=== PATIENT | female | born 1935 | race Caucasian/White ===

== ENCOUNTER 2017-02-14 12:16 | Inpatient (IN) | payer MEDICARE ==
[~2017-02-14] VITALS: Ht 157.5 cm; Wt 62.6 kg
[2017-02-14 12:59] LABS: BASOPHILS 0.5 % (0-2); EOSINOPHILS 1.2 % (0-7); HEMATOCRIT 35.4 % (36.0-48.0); HEMOGLOBIN 11.7 g/dL (12-16); IMMATURE GRANULOCYTES 0.2 % (0-5); LYMPHOCYTES 24.3 % (15-50); MCH 31.9 pg (26.0-34.0); MCHC 33.1 g/dL (31.0-37.0); MCV 96.5 fL (80.0-100.0); MEAN PLATELET VOLUME 9.5 fL (7.4-10.4); MONOCYTES 7.6 % (2-11); NEUTROPHILS 66.2 % (40-80); PLATELET COUNT 235 10x3/uL (130-400); RBC 3.67 10x6/uL (4.00-5.40); RDW 12.4 % (11.5-14.5)
[2017-02-14 13:12] LABS: ALBUMIN 3.6 g/dL (3.4-5.0); ALKALINE PHOSPHATASE 94 U/L (46-116); ALT (SGPT) 16 U/L (10-68); CALC OSMOLALITY 275 mosm/kg (275-300); CALCIUM 8.9 mg/dL (8.5-10.1); CARBON DIOXIDE 29.9 mmol/L (21.0-32.0); CHLORIDE - SERUM 102 mmol/L (98-107); CREATININE - SERUM 1.1 mg/dL (0.6-1.3); GLUCOSE 110 mg/dL (74-106); POTASSIUM - SERUM 3.1 mmol/L (3.5-5.1); PROTEIN - SERUM 7.4 g/dL (6.4-8.2); SODIUM 137 mmol/L (136-145); UREA NITROGEN 15 mg/dL (7-18); eGFR NON AFRICAN AMERICAN 50 mL/min (90-120)
[2017-02-14 13:24] LABS: CKMB 1.9 U/L (0.0-3.6); CREATINE KINASE 160 UL (21-215)
[2017-02-14 13:31] LABS: TROPONIN-I < 0.017 ng/mL (0.000-0.060)
[2017-02-14] MEDS ORDERED: CARAFATE1 G PO (14:59)
[2017-02-14] MEDS ORDERED: CELEBREX200 MG PO (14:59)
[2017-02-14] MEDS ORDERED: NEURONTIN 300300 MG PO (14:59)
[2017-02-14] MEDS ORDERED: BAYER CHEWABLE81 MG PO (15:00)
[2017-02-14] MEDS ORDERED: TIAZAC/CARDIZE240 M1 PO (15:00)
[2017-02-14] MEDS ORDERED: CELEXA20 MG PO (15:00)
[2017-02-14] MEDS ORDERED: DURAGESIC1 PATCH .7 TRANSDERM (15:03)
[2017-02-14] MEDS ORDERED: NORCO 7.5/325 T1 TA1 PO (15:04)
[2017-02-14] MEDS ORDERED: ATIVAN2 MG PO (15:05)
[2017-02-14] MEDS ORDERED: PROTONIX40 MG PO (15:05)
[2017-02-14] MEDS ORDERED: VESICARE10 MG PO (15:05)
[2017-02-14] MEDS ORDERED: K-TAB10 MEQ PO (15:06)
[2017-02-14] MEDS ORDERED: NORMODYNE / TR100 MG PO (15:07)
[2017-02-14] MEDS ORDERED: MYSOLINE250 MG PO (15:07)
[2017-02-14] MEDS ORDERED: ANTIVERT12.5 MG PO (15:08)
[2017-02-14] MEDS ORDERED: CHOLESTYRAMIN4 G/PK1 PO (15:09)
[2017-02-14] MEDS ORDERED: PHENERGAN25 M1 PO (15:10)
[2017-02-14] MEDS ORDERED: NITROSTAT0.4 MG SL (15:10)
[2017-02-14] MEDS ORDERED: MELATONIN 3 MG1 TAB PO (15:12)
[2017-02-14 15:24] LABS: CHOL - HDL RATIO 2.8 ratio (2.3-4.1); LDL-HDL RATIO 1.3 ratio (1.5-3.5)
[2017-02-14 15:43] VITALS: BP 152/74; BMI 25.3
--- NOTE | 2017-02-14 16:31 | NUR ---
PT WAS ADMITTED FROM THE ED FROM [facility]. PT IS VERY TEARFUL AND ANXIOUS. ORIENTED TO PERSON, PLACE, AND TIME. PT MOOD IS LABILE WITH PERIODS OF DEPRESSION MIXED WITH PERIODS OF AGITATION. PT IS VERY ARGUMENTATIVE AND DIFFICULT TO REDIRECT. FALL PRECAUTIONS INITIATED. WILL CONTINUE TO MONITOR AND INITIATE PLAN OF CARE.
--- NOTE | 2017-02-14 16:35 | NUR ---
ATTEMPTED TO CALL BOTH NUMBERS FOR PT'S DAUGHTER BUT NO ANSWER. WAS UNABLE TO LEAVE MESSAGE.
[2017-02-14 16:36] VITALS: BP 152/74
--- NOTE | 2017-02-14 17:35 | NUR ---
DAUGHTER CALLED AND I UPDATED HER ON PT BEING ADMITTED. GAVE VERBAL CONSENT FOR ADMIT AND CARE. REVIEWED MEDICATIONS AND TX PLAN. VERBALIZED UNDERSTANDING.
[2017-02-14 20:58] VITALS: BP 154/76
--- NOTE | 2017-02-14 21:19 | NUR ---
B) Recieved patient in the day room, alert and oriented to self and being in the hospital, mad at Benigno Estrella for putting her here, difficult to redirect, restless, somatic complaints, I) No Medications this shift, monitored for falls and safety, R) somatic compliants, needy, attention seeking, P) Continue plan of care, continue to monitor.
--- NOTE | 2017-02-15 07:38 | NUR ---
ATTEMPTED TO GET IN AND OUT FOR URINE, UNABLE, BUT PATIENT WAS ABLE TO URINATE ON HER OWN, OBTAINED URINE TO SEND RO LAB.
[2017-02-15 08:41] LABS: APPEARANCE CLEAR (CLEAR); BACTERIA MODERATE /hpf (NONE SEEN); BILIRUBIN NEGATIVE (NEGATIVE); COLOR YELLOW (YELLOW); EPITHELIAL CELLS 0-5 /hpf (0-5); GLUCOSE NEGATIVE (NEGATIVE); HYALINE CAST 0-5 /lpf (NONE SEEN); KETONE NEGATIVE (NEGATIVE); LEUKOCYTE ESTERASE TRACE (NEGATIVE); MUCUS <1+ /lpf (NONE SEEN); NITRITE NEGATIVE (NEGATIVE); PROTEIN NEGATIVE (NEGATIVE); RED CELLS - URINE 0-5 /hpf (0-5); SPECIFIC GRAVITY 1.015 (1.005-1.020); UROBILINOGEN NORMAL (NORMAL); WHITE CELLS - URINE OCC /hpf (0-5)
--- NOTE | 2017-02-15 09:41 | NUR ---
QUESTERINE PO GIVEN FOR LOOSE BM, WILL MONITOR.
[2017-02-15 09:47] VITALS: BP 152/85
--- NOTE | 2017-02-15 10:38 | NUR ---
B) PATIENT C/O HAVING DIARRHEA, SHE SAYS SHE HAS HAD 10-15 BOWEL MOVEMENTS LAST NIGHT, BUT NONE WERE REPORTED AND THEN WILBERT GOLDMAN TOOK HER TO THE TOILET AND SHE SAID SHE HAD A BM NOW, BUT WILBERT SAID SHE DID NOT NOTE IT. PATIENT C/O STOMACH ISSUES AND SHE C/O HER EYES BOTHERING, SHE IS DEMANDING AND ANXIOUS AND MAKES MULTPLE REQUESTS. PATIENT CAN WALK, BUT SHE IS UNSTEADY. SHE JUST AMBULATED WITH P.T. AND WALKED A SHORT DISTANCE USING A WALKER. I) PROVIDE PRESCRIBED MEDS, REDIRECT NEEDED. R) PATIENT IS COMPLIANT WITH MEDS AND REQUESTS MORE. P) CONTINUE PLAN OF CARE.
[2017-02-15 11:06] VITALS: Ht 157.5 cm; Wt 62.6 kg
--- NOTE | 2017-02-15 13:13 | NUR ---
PATIENTS DAUGHTER CRISITN CALLED TO CHECK ON HER. GORGE YOON MHT SPOKE TO HER DAUGHTER AND GAVE HER THE REPORT THAT PATIENT IS FINE, BUT ANXIOUS. PATIENT CONTINUES TO C/O STOMACH HURTING AND NAUSEA AND HAVING DIARRHEA. SHE FLUSHES TOILET BEFORE IT CAN BE SEEN, BUT THERE IS NO SMELL LIKE A BM HAS BEEN HAD.
--- NOTE | 2017-02-15 14:54 | NUR ---
PATIENT CONTINUES TO C/O HER STOMACH JUST HURTING SO BADLY, EXPLAINED TO PATIENT THAT SHE IS NOT ABLE TO HAVE HER ANTIDIARRHEAL MED UNTIL TONIGHT, BUT AT 1630 SHE CAN HAVE ANOTHER SUCROLOSE. PATIENT SAID "I WISH I WOULD HAVE ASKED THAT FOR MEDICINE. EXPLAINED TO HER THAT THE DRAlie WILL PRESCRIBE HER WHAT HE FEELS LIKE SHE NEEDS. SHE SAID "OH, OK". PATIENT SITTING IN SANJAY CHAIR, NO FACIAL GRIMACES NOTED. SHE IS WHINING AND DEMANDING AND HELPLESS, HOPELESS.
--- NOTE | 2017-02-15 16:43 | NUR ---
PATIENT IS ASKING ABOUT PAIN MEDICATION. I JUST GAVE HER A CARAFATE AND PATIENT SAID "IS THAT ALL, I THOUGHT YOU WERE GOING TO GIVE ME MEDICINE" I SAID "YOU WILL GET MEDICINE TONIGHT" SHE SAID "NO, DON'T I HAVE A PAIN PILL?" EXPLAINED TO HER THAT "NO, NOT CURRENTLY". PATIENT REMIANED CALM.
--- NOTE | 2017-02-15 17:47 | NUR ---
PATIENT IS SHAKING AND SHE SAYS "I'M SHAKING LIKE A LEAF" EXPLAINED TO HER THAT SHE IS PROBABLY A LITTLE ANXIOUS AND IT IS PARTIALLY HER PARKINSON'S ALSO. PATIENT SAID "I'M RUNNING A TEMPERATURE, MY STOMACH IS KILLING ME" PATIENT WENT TO THE BATHROOM AND SHE SAID SHE THREW UP, SHE DID NOT LET STAFF SEE AND THERE WAS NO OTHER SIGN SUCH SMELL. EXPLAINED TO PATIENT THAT SHE WILL NEED TO LET STAFF SEE BEFORE SHE FLUSHES FROM NOW ON. SHE SAID "OH, I'M SORRY". PATIENT IS EATING HER MEAL.
[2017-02-15 19:54] VITALS: BP 147/73
--- NOTE | 2017-02-16 02:24 | NUR ---
B) Recieved in the day room watching TV, alert and oriented to self and hospital, anxious at times, I) Administered perscribed medications, monitored for falls and safety, R) Medication compliant, resting now quietly in bed eyes closed, P) Continue plan of care.
[2017-02-16 10:15] VITALS: BP 153/81
--- NOTE | 2017-02-16 12:59 | NUR ---
PATIENT'S DAUGHTER CALLED AND SHE ASKED HOW SHE IS DOING, ASKED IF SHE WOULD BE DISCHARGED TODAY, ASKED ABOUT UPDATES. EXPLAINED TO HER THAT NORMALLY OUR PATIENTS STAY IS 7-14 DAYS, AND DR. KENNEY WHO IS FOLLOWING WILL BE OFF THIS WEEKEND, BUT DR. RICO WILL FOLLOW, EXPLAINED THAT DR. KENNEY TOOK HER OFF SEVERAL OF HER MEDS AND TOLD HER WHICH ONES, EXPLAINED TO HER THAT SHE HAD A TEST WITH DR. PHIPPS AND SCORED WITH MODERATE IMPAIRMENT. PATIENT'S DAGHTER SAID "I WONDER WHY THE THINKS SHE DOESN'T NEED ANY PAIN MEDICATION" STATED "IT ISN'T THAT HE DOES NOT THINK SHE NEEDS PAIN MEDICINE, BUT PERHAPS MORE OF A FORGETFUL NATURE TO REQUEST IT" EXPLAINED TO HER THAT 30 MINUTES AFTER THIS STATEMENT I TOOK HER STOMACH MEDICINE TO HER AND THERE WAS NO MENTION OF PAIN AND SHE HAD BEEN INTERACTING AND ENJOYING GROUP THERAPY WITH STAFF AND PEERS. PATIENT'S DAUGHTER ASKED WHEN VISITING HOURS ARE AND DID LET HER KNOW FROM 3:30 PM TO 5:00 PM tUES, THURS, SAT AND SUN.
--- NOTE | 2017-02-16 13:29 | NUR ---
B) PATIENT IS AWAKE AND ALERT, SHE IS ORIENTED X3, BUT HAS POOR SHORT TERM MEMORY RECALL. SHE IS TRYING TO BE HELPFUL, BUT SHE NEEDS PROMPTS TO REMEBER THAT SHE IS A PATIENT AND NEEDS TO GET WELL FOR HERSELF AND NOT WORRY ABOUT OTHERS OR WHAT OTHERS ARE DOING. PATIENT IS COOPERATIVE, BUT FORGETS IN A FEW MINUTES. PATIENT CAN AMBULATE, BUT NEEDS STAND BY ASSIST. REMIND HER TO BE INDEPENDENT SHE CAN FOR LONG SHE CAN, BUT WE WILL BE HERE. I) PROVIDE PRESCRIBED MEDS, REDIRECT NEEDED TO APPROPRIATE MILIEU. R) PATIENT IS COMPLIANT WITH MEDS, SHE IS INTERACTING WITH GROUPS. SHE IS MORE RELAXED TODAY. P) CONTINUE PLAN OF CARE.
--- NOTE | 2017-02-16 16:44 | NUR ---
PATIENT IS ANXIOUS, SHE HAS SAID "OH WHAT A DAY" SHE SAYS SHE HAS NOT SLEPT, SHE WOKE UP AT 2 AM AND DID NOT GO TO SLEEP. EXPLAINED TO HER THAT SHE SHOULD SLEEP BETTER TONIGHT THEN. SHE SAID "BOY, I HOPE SO" SHE IS NERVOUS BECAUSE ONE OF THE PATIENTS IS TALKING TO HERSELF. ATIVAN 0.5 MG PO GIVEN. WILL MONITOR.
--- NOTE | 2017-02-16 17:30 | NUR ---
PATIENT SAID SHE THREW UP HER STOMACH PILL AND ASPIRIN. DID NOT SEE THE MED OR ANY VOMIT IN THE TRASH. GORGE SAID SHE THREW THE PAPER TRASH BAG IN THE BIG TRASH BAG SO IT IS GONE. PATIENT IS SAYING "I DON'T FEEL WELL" ALTHOUGH PATIENT IS CALM THERE IS NO MENTION OF PAIN OR ANXIETY. SHE THOUGHT SHE THREW UP THE STOMACH MED WITH THE ASA, BUT I SAID "NO, MA'AM IT WAS AN ATIVAN WITH YOUR STOMACH MED" SHE SAID "I'M NOT USE TO TAKING THAT WITH MY STOMACH MED" SHE IS EATING HER COBBLER, BUT NOT HER FOOD.
[2017-02-16 19:30] VITALS: BP 126/89
[2017-02-16 21:44] VITALS: BP 126/89
--- NOTE | 2017-02-17 02:00 | NUR ---
PATIENT IN DAYROOM IN RECLINER WITH LEGS PROPPED UP ON CHAIR. SHE IS NOT AGITATED OR CRYING. PATIENT IS COMPLIANT WITH HER MEDICATION. SHE IS ALERT AND OREINTED TO SELF, TIME AND PLACE. CONTINUE TO MONITOR.
[2017-02-17 11:23] VITALS: BP 132/93
--- NOTE | 2017-02-17 18:36 | NUR ---
MARCO OHARA 3.DOES NOT UNDERSTAND OR IS UNWILLING TO ADMIT TO WHY SHE IS HERE.STATES SHE IS HERE BECAUSE HER BP WAS ELEVATED FOR SEVERAL DAYS.STATE"I'M NOT CRAZY LIKE THOSE PEOPLE"EXPLAINED TOHER PEERS ARE NOT CRAZY,THAT THEY HAVE PROBLEMS WITH MEMORY.TAKES AM MEDS AND THEN BECOMES ARGUMENTIVE ABOUT HOW OFTEN SHE TAKES MEDICATIONS.WILL CONTINUE WITH PLAN OF CARE,MONITOR FOR CHANGES AND SAFETY.
[2017-02-17 19:30] VITALS: BP 130/86
--- NOTE | 2017-02-17 23:01 | NUR ---
Patient in dayroom watching t.v. She is engaging with staff, talking about her family. She is talking about grandchildren and her life, sacrafices she has made to put her grandchildren and children through school. Patient appears lonely and wants to engage with staff. She talks frequently about her daughters who are nurses. Patient is alert and oriented to person, place and time but not situation. Patient is encouraged to express her feelings and needs. She is pleasant, non-agitated or crying. Compliant with medication. continue to monitor, continue plan of care.
[2017-02-18 09:27] VITALS: BP 139/86
--- NOTE | 2017-02-18 18:53 | PN ---
PATIENT:MAYA CARTAGENA MEDICAL RECORD: [id number] LOCATION:[id number] ADMISSION DATE: 02/14/17 PROGRESS NOTE DATE OF SERVICE: 02/16/2017 SUBJECTIVE: The patient complains of insomnia. OBJECTIVE: The patient has had multiple somatic complaints in the absence of any psychosis. Staff report that she is very manipulative and also exhibits emotional lability. She does have episodic confusion, but at times is more clearly oriented. On exam, mood is somewhat irritable. Affect is shallow and histrionic. Speech is fairly coherent. Content of thought is predominated by somatic complaints. Sensorium shows no change. ASSESSMENT: No change in diagnosis. PLAN: 1. Continue current medications. 2. Continue supportive therapy. TRANSINT:[id number] Voice Confirmation ID: [id number] DOCUMENT ID: [id number] CATRINA RICO III, MD at 1853 CC: [id number] DICTATION DATE: 02/16/17 1049 TEAROOM HOST/HOSTESS: 02/16/172036 ADM IN [place] [id number] [place] [id number]
--- NOTE | 2017-02-18 18:53 | PN ---
PATIENT:MAYA CARTAGENA MEDICAL RECORD: [id number] LOCATION:[id number] ADMISSION DATE: 02/14/17 PROGRESS NOTE DATE OF SERVICE: 02/18/2017 SUBJECTIVE: No new complaint. OBJECTIVE: The patient is complaining of poor sleep. She tends to be rather argumentative from time to time, but has been compliant about taking medication. On exam, mood is slightly irritable. Affect shallow. Speech is fairly fluent. Content of thought focuses on somatic concerns. Sensorium shows no change. ASSESSMENT: No change in diagnosis. PLAN: 1. Maintain current medication. 2. Continue supportive therapy. TRANSINT:[id number] Voice Confirmation ID: [id number] DOCUMENT ID: [id number] CATRINA RICO III, MD at 1853 CC: [id number] DICTATION DATE: 02/18/17 0808 LIFE ENRICHMENT ASSISTANT: 02/18/17 1104 ADM IN [facility] [address] [place] [address]
[2017-02-18 19:20] VITALS: BP 142/73
--- NOTE | 2017-02-18 19:42 | NUR ---
RECEIVED IN DAYROOM. SITTING IN RECLINER WATCHING TV. ALERT AND ORIENTED X3. CALM AND COOPERATIVE WITH CARE AND ASSESSMENTS. ENCOURAGE TO EXPRESS NEEDS. CONTINUES TO SIT QUIETLY WATCHING TV. CONTINUE PLAN OF CARE
--- NOTE | 2017-02-19 01:10 | NUR ---
PATIENT REQUEST SOMETHING FOR ANXIETY. PRN ATIVAN 0.5 MG PO GIVEN
--- NOTE | 2017-02-19 06:24 | NUR ---
PATIENT REQUEST SOMETHING FOR PAIN AND ANXIETY. ATIVAN 0.5 MG PO GIVEN FOR ANXIETY AND NORCO 5MG PO GIVEN FOR KNEE PAIN OF 7.
[2017-02-19 07:00] VITALS: BP 131/81
[2017-02-19 10:04] VITALS: BP 131/81
--- NOTE | 2017-02-19 14:43 | PSY ---
PATIENT NAME:MAYA CARTAGENA MEDICAL RECORD: [id number] : 35 LOCATION:[id number] ADMISSION DATE: 02/14/17 ACCOUNT: [id number] PSYCHIATRIC EVALUATION DATE OF EVALUATION: 02/15/17 Psychiatric Evaluation IDENTIFYING DATA: The patient is 81 years old and she is admitted to the hospital on a voluntary basis. CHIEF COMPLAINT: Agitation. HISTORY OF PRESENT ILLNESS: The patient is referred to us by her primary care physician from the Emergency Room. She has been at an assisted living center for a couple of months. Prior to that, she was living at home. She reports and endorses a number of neurovegetative depressive symptoms along with some anxiety, crying spells and most significantly, some periods of agitation and disruptive behaviors with the staff at the assisted living center. She has numerous complaints. She denies that she would seek to harm herself or others. PAST MEDICAL HISTORY: Significant for hypertension, Parkinson disease, coronary artery disease. PAST PSYCHIATRIC HISTORY: Significant for outpatient treatment for depression. FAMILY HISTORY: Unknown. SOCIAL HISTORY: The patient has been and twice. She has 2 children from her first marriage. They both live locally and are supportive. The patient has no history of drug or alcohol abuse. As mentioned above, she moved to an assisted living center a couple of months ago. MENTAL STATUS EXAMINATION: The patient is awake, alert and oriented to person and place. She is partially oriented to time and situation. Her mood is anxious. Her affect is constricted. Thought processes are circumstantial. Memory, concentration and abstraction abilities are at least moderately impaired and she denies that she would seek to harm herself or others as well as overt psychotic symptoms. ASSETS: Stable living environment. LIABILITIES: Poor insight. 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 Rule out dementia. AXIS II: Cluster C personality traits. AXIS III: Hypertension, Parkinson disease, coronary artery disease, overactive bladder. AXIS IV: Moderate stressors. AXIS V: Global assessment of functioning is 30. PLAN: At this time, the patient is admitted to the hospital for a comprehensive medical, psychological, and social evaluation. She will be treated with both mood-stabilizing and memory-enhancing medications as deemed appropriate. Her long-term prognosis is guarded. TRANSINT:[id number] Voice Confirmation ID: [id number] DOCUMENT ID: [id number] PILO KENNEY MD at 1443 CC: [id number] DICTATION DATE: 02/15/17 145 BURNT LIME DRAWER: 02/15/17 [address] [facility] [address] [place] [id number]
--- NOTE | 2017-02-19 15:47 | NUR ---
Recieved this am, alert and oriented times three, states reason for hospitalization " i checked myself in for blood pressure problems, I had no idea it would led to me being here." Administer medications and monitor compliance. Redirect for any attention seeking behavior. Encourage group participation. Monitor safety. Compliant with medications. Calm and cooperative, has not verbalized need for pain medication, new medication Voltreren gel ap-plied to knees today which has been effective. No crying or yelling. Good behavior control. Active om group and social with others. Safety maintained . Continue with plan of care.
[2017-02-19 20:00] VITALS: BP 134/76
--- NOTE | 2017-02-19 21:10 | NUR ---
RECEIVED IN DAYROOM. SITTING IN RECINING CHAIR WITH PEERS AT HER SIDE. IN GOOD SPIRITS. STATES KNEE PAIN AT 10. ALERT AND ORIENTED. CALM AND COOPERATIVE WITH CARE AND ASSESSMENT. STATES SHE HAS ANXIETY AND REQUEST PRN MEDICATION. ENCOURAGE TO EXPRESS NEEDS. RESTING IN BED EYES CLOSED AT THIS TIME. CONTINUE PLAN OF CARE
[2017-02-20] MEDS ORDERED: PEPCID20 MG PO (08:19)
[2017-02-20] MEDS ORDERED: ARTIFICIAL TEAR15 ML EACH EYE (08:20)
[2017-02-20] MEDS ORDERED: CYMBALTA20 MG PO (08:21)
[2017-02-20] MEDS ORDERED: VOLTAREN100 GM TOPICAL (08:21)
[2017-02-20] MEDS ORDERED: CELEBREX200 MG PO (08:22)
[2017-02-20] MEDS ORDERED: CARDIZEM CD240 MG PO (08:23)
[2017-02-20] MEDS ORDERED: QUESTRAN PACK4 G/PKT PO (08:23)
[2017-02-20 09:00] VITALS: BP 137/74
[2017-02-20 10:54] VITALS: BP 137/74
--- NOTE | 2017-02-20 11:49 | NUR ---
Received this am, self propeling in W/C, alert and oriented times three. Administer medications and monitor compliance. Redirect for any inappropriate behavior. Monitor safety. Compliant with medications, became a little agitated that she was not going to be discharged today as she thought. Discharge process explained to patient, no crying or yelling, able to accept instructions and education without any yelling or agitation. Safety maintained. Continue plan of care.
--- NOTE | 2017-02-20 14:00 | PN ---
PATIENT:MAYA CARTAGENA MEDICAL RECORD: [id number] LOCATION:[id number] ADMISSION DATE: 02/14/17 PROGRESS NOTE DATE OF SERVICE: 02/19/2017 SUBJECTIVE: The patient's case was discussed with staff. She has no new complaint. OBJECTIVE: The patient is in good behavioral control with limited insight about her condition. She tolerates her medicines well. ASSESSMENT: No change in diagnoses. PLAN: The patient will have her Cymbalta increased slightly. I anticipate she can be transitioned out of the hospital soon. Her long-term prognosis is guarded. TRANSINT:[id number] Voice Confirmation ID: [id number] DOCUMENT ID: [id number] PILO KENNEY MD at 1400 CC: [id number] DICTATION DATE: 02/19/17 1517 AUDIO VIDEO TECHNICIAN: 02/20/17 0100 ADM IN [place] [id number] [place] [id number]
[2017-02-20 19:11] VITALS: BP 156/88
--- NOTE | 2017-02-20 19:29 | NUR ---
RECEIVED IN DAYROOM. SITTING IN CHAIR WITH PEERS AT HER SIDE. SOCIAL WITH STAFF AND PEERS. CALM AND COOPERATIVE WITH CARE AND ASSESSMENTS. NO SIGNS OF AGGRESSION. ENCOURAGE TO EXPRESS NEEDS. RESTING IN BED EYES OPEN AT THIS TIME. CONTINUE PLAN OF CARE
--- NOTE | 2017-02-21 08:12 | NUR ---
PT IS CALM, COOPERATIVE WITH CARE. NO AGGRESSION NOTED. REVIEWED DISCHARGE INSTRUCTIONS WITH PATIENT AND SHE VERBALIZED UNDERSTANDING. ALL PAPERWORK GIVEN TO PT AND BELONGINGS GATHERED AND WILL BE SENT WITH PATIENT. VSS. PT WILL DISCHARGE BACK TO [facility] AND BE TRANSPORTED BY A FRIEND.
[2017-02-21 08:41] VITALS: BP 129/77
--- NOTE | 2017-02-21 09:42 | NUR ---
SW SPOKE WITH PT ABOUT OUTPATIENT THERAPY. PT DENIED REFERRAL STATING SHE DIDN'T FEEL SHE NEEDED IT AT THIS TIME.
--- NOTE | 2017-02-21 10:02 | NUR ---
ALL MEDICATIONS CALLED IN TO [facility] AND WILL BE DELIVERED TO [facility].
--- NOTE | 2017-02-21 14:59 | PN ---
PATIENT:MAYA CARTAGENA MEDICAL RECORD: [id number] LOCATION:[id number] ADMISSION DATE: 02/14/17 PROGRESS NOTE DATE OF SERVICE: 02/20/2017 SUBJECTIVE: The patient's case was discussed with staff. She has no new complaint. OBJECTIVE: The patient is in good behavioral control, not suicidal, not aggressive and is not agitated. ASSESSMENT: No change in diagnoses. PLAN: I anticipate the patient could be transitioned out of the hospital soon if this level of improvement is maintained. Long-term prognosis is guarded. TRANSINT:[id number] Voice Confirmation ID: [id number] DOCUMENT ID: [id number] PILO KENNEY MD at 1459 CC: [id number] DICTATION DATE: 02/20/17 1420 WOOD MACHINIST APPRENTICE: 02/20/172021 DIS IN 02/21/17 [facility] [address] [place] [address]
--- NOTE | 2017-02-22 13:41 | PN ---
PATIENT:MAYA CARTAGENA MEDICAL RECORD: [id number] LOCATION:[id number] ADMISSION DATE: 02/14/17 PROGRESS NOTE DATE OF SERVICE: 02/21/2017 SUBJECTIVE: The patient's case was discussed with staff. She has no new complaint. OBJECTIVE: The patient denies intent to harm herself or others. She is in good behavioral control. She very much denies and resents the suggestion that she might have a substance use disorder and that perhaps she does not need [place] to help with her pain. ASSESSMENT: No change in diagnoses. PLAN: The patient is going to be transitioned back to assisted living. I think given her poor performance on neuropsych testing that she is more appropriate for a longterm, but that has been considered by the patient and her family and they have rejected that recommendation. She is to have followup with her primary care physician. Her halfway prognosis is guarded and I would anticipate similar issues that brought her here to occur again since the environment is not really appropriate for the level of supervision that she actually needs. TRANSINT:[id number] Voice Confirmation ID: [id number] DOCUMENT ID: [id number] PILO KENNEY MD at 1341 CC: [id number] DICTATION DATE: 02/21/17 1508 BUSINESS DIVISION CHAIR: 02/22/17 0031 DIS IN 02/21/17 [place] [id number] [place] [address]
--- NOTE | 2017-02-23 11:53 | DS ---
PATIENT:MAYA CARTAGENA :35 MEDICAL RECORD: [id number] DISCHARGE SUMMARY ADMISSION DATE: 02/14/17 DISCHARGE DATE: 02/21/17 IDENTIFYING DATA: The patient is 81 years old and she was admitted to the hospital on a voluntary basis secondary to agitation. The patient is referred to us by her primary care physician and she came through the Emergency Room. She had been living in an assisted living center for a couple of months. Prior to that, she was living at home. She reports and endorses numerous neurovegetative depressive symptoms along with anxiety, crying, and most significantly some periods of agitation and disruptive behavior. The agitation and aggression toward the staff at the assisted living center that has been most distressing and unmanageable on an outpatient basis. HOSPITAL COURSE: The patient was admitted to the hospital and fully evaluated from both a medical, psychological, and social standpoint. She was found to be clearly depressed and was given antidepressant medications. She also a clear evidence of cognitive impairment and some of her medications that might worsen this that were not particularly helpful such as scheduled narcotics and benzodiazepines were discontinued. The patient showed minimal improvement in her cognition. She was tested by Dr. Goldie Salinas our neuropsychologist and found to have an advanced dementia. I suspected dementia and would have guessed it would be moderate, but I was surprised to discover that the dementia is indeed advanced. The patient was treated with memory enhancing medications. It was recommended that assisted living was not a good option for her that it was not sufficiently structured and the family and the patient rejected this and she returned to assisted living. DISCHARGE DIAGNOSES: AXIS I: 1. 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 2. Senile dementia of the Alzheimer's type. AXIS II: Cluster C personality traits. AXIS III: Hypertension, Parkinson's disease, coronary artery disease, overactive bladder. AXIS IV: Moderate stressors. AXIS V: Global assessment of functioning is 35. PLAN: At this time, the patient is admitted to the hospital for ____. Plan, at this time, the patient is discharged from the hospital and will be followed on an outpatient basis by her primary care outpatient physician. Her long-term prognosis is guarded. TRANSINT:[id number] Voice Confirmation ID: [id number] DOCUMENT ID: [id number] PILO KENNEY MD at 1153 CC: [id number] DICTATION DATE: 02/22/17 1349 ROUTE DELIVERY SUPERVISOR: 02/23/17 0355 DIS IN 02/21/17 [facility] [address] [place] [id number]
== END 2017-02-21 10:04 | disposition home or self-care (01) | DRG 885 ==
LOC: D.ER 12:16 → D.PSYCH 14:36
PROVIDERS: Emergency Medicine; ADMIT Psychiatry & Neurology Psychiatry
DX: F32.2 Major depressive disorder, single episode, severe without psychotic features (principal); G30.1 Alzheimer's disease with late onset; F02.80 Dementia in other diseases classified elsewhere, unspecified severity, without behavioral disturbance, psychotic disturbance, mood disturbance, and anxiety; I10 Essential (primary) hypertension; G20 Parkinson's disease; E78.5 Hyperlipidemia, unspecified; K21.9 Gastro-esophageal reflux disease without esophagitis; D64.9 Anemia, unspecified; I25.10 Atherosclerotic heart disease of native coronary artery without angina pectoris; N32.81 Overactive bladder; G89.29 Other chronic pain; H04.129 Dry eye syndrome of unspecified lacrimal gland

== ENCOUNTER → 2018-11-14 17:07 | Outpatient (CLI) | payer MEDICARE, MEDICAID ==
[~2018-11-14 17:07] MED LIST: ANTIVERT12.5 MG PO; ARTIFICIAL TEAR15 ML EACH EYE; ATIVAN2 MG PO; BAYER CHEWABLE81 MG PO; CARAFATE1 G PO; CARDIZEM CD240 MG PO; CELEBREX200 MG PO; CELEXA20 MG PO; CHOLESTYRAMIN4 G/PK1 PO; CYMBALTA20 MG PO; DURAGESIC1 PATCH .7 TRANSDERM; K-TAB10 MEQ PO; MELATONIN 3 MG1 TAB PO; MYSOLINE250 MG PO; NEURONTIN 300300 MG PO; NITROSTAT0.4 MG SL; NORCO 7.5/325 T1 TA1 PO; NORMODYNE / TR100 MG PO; PEPCID20 MG PO; PHENERGAN25 M1 PO; PROTONIX40 MG PO; QUESTRAN PACK4 G/PKT PO; TIAZAC/CARDIZE240 M1 PO; VESICARE10 MG PO; VOLTAREN100 GM TOPICAL
== END | disposition home or self-care (01) ==
LOC: D.CT 17:07
DX: R20.0 Anesthesia of skin (principal)

== ENCOUNTER 2019-03-13 08:52 | Emergency (ER) | payer MEDICARE, MEDICAID ==
[~2019-03-13] VITALS: Ht 157.5 cm; Wt 61.4 kg
[2019-03-13 08:53] VITALS: Ht 157.5 cm; Wt 61.4 kg
[2019-03-13] MEDS ORDERED: ALENDRONATE SOD40 MG PO (08:58)
[2019-03-13] MEDS ORDERED: MOBIC7.5 MG PO (08:59)
[2019-03-13] MEDS ORDERED: VITAMIN D5000 UNIT PO (09:00)
[2019-03-13] MEDS ORDERED: NEURONTIN 300300 MG PO (09:01)
[2019-03-13] MEDS ORDERED: OPTIVE SENSITI1 EACH EACH EYE (09:03)
[2019-03-13] MEDS ORDERED: ATIVAN0.5 MG PO (09:04)
[2019-03-13] MEDS ORDERED: IMODIUM2 MG PO (09:05)
[2019-03-13] MEDS ORDERED: FUROSEMIDE20 MG PO (09:06)
[2019-03-13] MEDS ORDERED: MECLIZINE HCL25 MG PO (09:06)
[2019-03-13] MEDS ORDERED: ULTRAM50 MG PO (09:07)
[2019-03-13] MEDS ORDERED: VOLTAREN100 GM TOPICAL (09:08)
[2019-03-13 09:32] LABS: APPEARANCE CLEAR (CLEAR); BILIRUBIN NEGATIVE (NEGATIVE); COLOR STRAW (YELLOW); GLUCOSE NEGATIVE (NEGATIVE); KETONE NEGATIVE (NEGATIVE); NITRITE NEGATIVE (NEGATIVE); PROTEIN NEGATIVE (NEGATIVE); SPECIFIC GRAVITY 1.005 (1.005-1.020); UROBILINOGEN NORMAL (NORMAL)
[2019-03-13 09:39] LABS: BASOPHILS 0.6 % (0-2); EOSINOPHILS 1.9 % (0-7); HEMATOCRIT 35.4 % (36.0-48.0); HEMOGLOBIN 11.8 g/dL (12-16); IMMATURE GRANULOCYTES 0.1 % (0-5); LYMPHOCYTES 22.7 % (15-50); MCH 31.1 pg (26.0-34.0); MCHC 33.3 g/dL (31.0-37.0); MCV 93.2 fL (80.0-100.0); MEAN PLATELET VOLUME 9.2 fL (7.4-10.4); MONOCYTES 9.4 % (2-11); NEUTROPHILS 65.3 % (40-80); PLATELET COUNT 211 10x3/uL (130-400); RDW 13.3 % (11.5-14.5); WBC 6.8 10x3/uL (4.8-10.8)
[2019-03-13 09:55] LABS: ALBUMIN 3.4 g/dL (3.4-5.0); ANION GAP 11.6 mmol/L (8-16); BILIRUBIN - TOTAL 0.19 mg/dL (0.2-1.3); CALCIUM 8.7 mg/dL (8.5-10.1); CARBON DIOXIDE 27.7 mmol/L (21.0-32.0); POTASSIUM - SERUM 3.3 mmol/L (3.5-5.1); PROTEIN - SERUM 7.4 g/dL (6.4-8.2)
[2019-03-13] MEDS ORDERED: ZOFRAN ODT4 MG/UDTAB PO (11:35)
[2019-03-13] MEDS ORDERED: NORVASC10 MG PO (11:37)
[2019-03-13 12:00] VITALS: BP 178/95
== END 2019-03-13 12:44 | disposition home or self-care (01) ==
LOC: D.ER 08:52
PROVIDERS: Emergency Medicine
DX: I10 Essential (primary) hypertension (principal); R19.7 Diarrhea, unspecified; E87.6 Hypokalemia; R11.10 Vomiting, unspecified

== ENCOUNTER 2020-02-16 13:42 | Inpatient (IN) | payer MEDICARE, MEDICAID ==
[~2020-02-16] VITALS: Ht 157.5 cm; Wt 59.9 kg
[~2020-02-16 13:42] MED LIST changes: +ALENDRONATE SOD40 MG PO; +ATIVAN0.5 MG PO; +FUROSEMIDE20 MG PO; +IMODIUM2 MG PO; +MECLIZINE HCL25 MG PO; +MOBIC7.5 MG PO; +NORVASC10 MG PO; +OPTIVE SENSITI1 EACH EACH EYE; +ULTRAM50 MG PO; +VITAMIN D5000 UNIT PO; +ZOFRAN ODT4 MG/UDTAB PO
[2020-02-16 14:46] VITALS: BP 158/80; BMI 24.2
--- NOTE | 2020-02-16 19:50 | NUR ---
PATIENT RECEIVED SITTING UP IN BED. PATIENT C/O FOOD BROUGHT BY KITCHEN STAFF. TUNA IN BOWL. POTATO CHIPS UNABLE TO EAT. THIS NURSE TOLD PATIENT "SORRY ABOUT THE FOOD. I WILL GO TO ER & GET A TURKEY SANDWICH. PATIENT AGREED. ASSESSMENT & VITAL SIGNS DONE. NO C/O PAIN. BED LOW. CALL LIGHT WITHIN REACH. WILL CONTINUE TO MONITOR.
--- NOTE | 2020-02-16 20:35 | NUR ---
THIS NURSE CALLED TO ROOM. PATIENT ASSIST TO BATHROOM. PATIENT USED ROLLING WALKER WITH STANDBY ASSIST. STEADY BALANCED GAIT. VOID ONLY. RETURNED TO LOW BED. CALL LIGHT WITHIN REACH. WILL CONTINUE TO MONITOR.
--- NOTE | 2020-02-16 20:40 | NUR ---
PATIENT USED CALL LIGHT FOR ASSIST TO BATHROOM. VOID ONLY. PATIENT RETURNED TO LOW BED. CALL LIGHT WITHIN REACH. WILL CONTINUE TO MONITOR.
[2020-02-16 20:48] VITALS: BP 155/77
--- NOTE | 2020-02-16 23:48 | NUR ---
I have reviewed this patient and I concur with the Shift Assessment completed by the Licensed Practical Nurse today this shift.
[2020-02-17 06:57] LABS: ANION GAP 11.3 mmol/L (8-16); CALCIUM 8.6 mg/dL (8.5-10.1); CARBON DIOXIDE 26.3 mmol/L (21.0-32.0); CREATININE - SERUM 1.2 mg/dL (0.6-1.3); POTASSIUM - SERUM 3.6 mmol/L (3.5-5.1)
[2020-02-17 07:04] LABS: BASOPHILS 0.6 % (0-2); EOSINOPHILS 3.5 % (0-7); HEMATOCRIT 35.8 % (36.0-48.0); HEMOGLOBIN 11.6 g/dL (12-16); IMMATURE GRANULOCYTES 0.2 % (0-5); LYMPHOCYTES 31.6 % (15-50); MCHC 32.4 g/dL (31.0-37.0); MCV 95.7 fL (80.0-100.0); MEAN PLATELET VOLUME 9.4 fL (7.4-10.4); MONOCYTES 10.9 % (2-11); NEUTROPHILS 53.2 % (40-80); PLATELET COUNT 229 10x3/uL (130-400); RBC 3.74 10x6/uL (4.00-5.40); RDW 12.8 % (11.5-14.5); WBC 5.1 10x3/uL (4.8-10.8)
--- NOTE | 2020-02-17 08:16 | NUR ---
SO FAR THIS MORNING HAS BEEN CONSTANTLY COMPLAINING ABOUT MEDS, MED TIMES, FOOD, MENUES, NOT UNDERSTANDING WHY SHE CANT GET UP BY HERSELF, AND BRIGHT LIGHTS. SHE WANTS TO TAKE HER MEDS (ONLY) THAT SHE BROUGHT FROM HOME AND TAKE THEM ON HER OWN SCHEDULE. SHE DENIES PAIN OR DIARRHEA. SHE STATES SHE IS USED TO WALKING 3/4 A MILE DAILY BUT HAS NOT BEEN DOING THAT SINCE COVID 19 CHANGED EVERYTHING AND SHE IS LIVING WITH HER DTR.
[2020-02-17 08:23] VITALS: BP 163/90
[2020-02-17] MEDS ORDERED: NORVASC10 MG PO (12:58)
[2020-02-17] MEDS ORDERED: ULTRAM50 MG PO (12:59)
[2020-02-17] MEDS ORDERED: MYSOLINE 50 MG50 MG PO (13:00)
[2020-02-17] MEDS ORDERED: OMEPRAZOLE20 M1 PO ×2 (13:01→13:02)
[2020-02-17] MEDS ORDERED: VITAMIN D1000 UNI1 PO (13:01)
[2020-02-17] MEDS ORDERED: CARDIZEM LA120 M1 PO (13:09)
[2020-02-17 14:43] VITALS: Ht 157.5 cm; Wt 59.9 kg
--- NOTE | 2020-02-17 14:48 | NUR ---
PATIENT ADMITTED TO REHAB FROM HOME. DR. VAZ IS PATIENT PCP. PATIENT HAS ALL DME NEEDED AT THIS TIME. DISCHARGE PLANS ARE FOR PATIENT TO RETURN TO HER HOME. WILL CONTINUE TO FOLLOW WITH PATIENT.
--- NOTE | 2020-02-17 15:45 | NUR ---
LAYING ON BACK WITH EYES CLOSED RESTING QUIETLY IN BED. NO S/S DISTRESS. NURSE ONCE AGAIN WENT OVER HER MEDS AND MED PASS TIMES WITH PT. ALL PT'S MEDS WERE RETIMED TO HER HOME SCHEDULE PT REFUSED TO TAKE ANY MEDS EXCEPT AT HER MED TIMES. SHE WAS ARGUMENTATIVE WITH STAFF. SHE DID SIGN BED ALARM WAIVER. CALL LIGHT IN REACH. SIDE RAILS UP X2.
--- NOTE | 2020-02-17 19:00 | NUR ---
GREETED PATIENT AND INTRODUCED MYSELF HER NURSE. PATIENT IS CURRENTLY LAYING IN BED RESTING. PATIENT IS EXTREMELY UPSET DUE TO THE FACT THAT SHE IS NOT GETTING HER MEDICATION IN HER DOSE PACKS FROM HER PHARAMACY. EXPLAINED TO PATIENT THAT THE PHYSICIAN ON REHAB WOULD BE THE ONE THAT WOULD BE PRESCRIBING HER MEDICATION. PATIENT STILL NOT SATISFIED. THIS NURSE WILL LEAVE A NOTE TO DR. VAZ CONCERNING THIS ISSUE. CALL LIGHT IN REACH.
--- NOTE | 2020-02-17 21:43 | NUR ---
WHILE ADMINSTERED PATIENTS MEDICATION THIS EVENING. PATIENT BECAME VERY DEMANDING AND RUDE AND STATED THAT DAY SHIFT NURSE DID NOT ADMINISTER ANY MEDICATIONS EVEN AFTER THIS NURSE READ OFF HER MAR THE EXACT TIMES THAT MEDICATION WAS ADMINISTERED. PATIENT STILL DENIED THAT SHE HAD TAKEN ANY MEDICATIONS AND DEMANDED THAT HER MEDICATIONS BE GIVEN ON THE TIMES THAT SHE TAKES THEM AT HOME. HAD CHARGE NURSE WITNESS TO GO OVER MEDICATIONS ONCE AGAIN AND PATIENT POINTED HER FINGER THIS NURSE AND DEMANDED THAT HER MEDICATIONS BE REVIEWED ONCE AGAIN. INFORMED PATIENT THAT IF THIS CONTINUED THAT EACH TIME SHE TOOK MEDICATION SHE WOULD NEED TO SIGN FOR ALL MEDICATIONS THAT SHE TOOK. PATIENT AGREED TO SIGN ANY DOCUMENTATION REGARDING MEDICATIONS THAT SHE TAKES.
[2020-02-17 21:58] VITALS: BP 142/81
--- NOTE | 2020-02-18 02:26 | NUR ---
PT RESTING QUIETLY WITH EYES CLOSED. RESPIRATIONS EVEN. NO S/S OF DISTRESS. CALL LIGHT IN REACH.
[2020-02-18 07:19] LABS: BASOPHILS 0.7 % (0-2); EOSINOPHILS 2.9 % (0-7); HEMATOCRIT 36.3 % (36.0-48.0); HEMOGLOBIN 11.7 g/dL (12-16); LYMPHOCYTES 29.7 % (15-50); MCH 30.5 pg (26.0-34.0); MCHC 32.2 g/dL (31.0-37.0); MCV 94.8 fL (80.0-100.0); MEAN PLATELET VOLUME 9.1 fL (7.4-10.4); MONOCYTES 9.3 % (2-11); NEUTROPHILS 57.4 % (40-80); PLATELET COUNT 204 10x3/uL (130-400); RBC 3.83 10x6/uL (4.00-5.40); RDW 12.8 % (11.5-14.5); WBC 5.5 10x3/uL (4.8-10.8)
[2020-02-18 07:24] LABS: ANION GAP 9.2 mmol/L (8-16); CALCIUM 8.6 mg/dL (8.5-10.1); CARBON DIOXIDE 27.2 mmol/L (21.0-32.0); CREATININE - SERUM 1.1 mg/dL (0.6-1.3); POTASSIUM - SERUM 3.4 mmol/L (3.5-5.1)
[2020-02-18 08:00] VITALS: BP 154/89
--- NOTE | 2020-02-18 08:00 | NUR ---
AWAKE.ORIENTED X 3.DENIES NEEDS.ASSESSMENT COMPLETED.WILL CONTINUE WITH CURRENT PLAN OF CARE.CL IN EASY REACH.BED IN LOW POSITION.
--- NOTE | 2020-02-18 15:41 | NUR ---
CARE TEAM MEETING: PATIENT IS NEW TO THE UNIT AND WILL BE RA AT NEXT MEETING. WILL CONTINUE TO FOLLOW. DR. VAZ STATES THE HE RECCOMENDS THAT PATIENT BE MOVED TO THE [facility] IN [facility].
--- NOTE | 2020-02-18 19:15 | NUR ---
GREETED PATIENT AND INTRODUCED MYSELF HER NURSE. PATIENT IS LAYING IN BED RESTING QUIETLY AT THIS TIME WATCHING TV. RESPIRATIONS EVEN. NO S/S OF DISTRESS. PT DENIES ANY NEEDS AT THIS TIME. CALL LIGHT IN REACH.
[2020-02-18 21:42] VITALS: BP 143/81
--- NOTE | 2020-02-19 03:04 | NUR ---
PT RESTING QUIETLY WITH EYES CLOSED. RESPIRATIONS EVEN. NO S/S OF DISTRESS. CALL LIGHT IN REACH.
[2020-02-19 08:00] VITALS: BP 138/79
--- NOTE | 2020-02-19 08:00 | NUR ---
PATIENT SITTING UP IN BED TO EAT BREAKFAST. ALERT/ORIENT. CALL LIGHT WITHIN REACH. VOICES NO NEEDS AT THIS TIME. WILL CONTINUE WITH PLAN OF CARE
--- NOTE | 2020-02-19 10:15 | NUR ---
PATIENT IN REHAB ROOM. WORKING WITH PHYSICAL THERAPIST. DENIES ANY PAIN/DISC AT THIS TIME.
--- NOTE | 2020-02-19 14:58 | NUR ---
PATIENT HAS SIGNED A RELEASE FROM BED/CHAIR ALARM. STEADY GAIT WITH WHEELED WALKER. WALKS WITH WHEELED WALKER.
--- NOTE | 2020-02-19 19:51 | NUR ---
PT IN BED WATCHING TV NO NEEDS NOTED, ALARM WAIVER, FLUIDS/CALL LIGHT WITHIN REACH, A&O FORGETFUL AT TIMES,HANDS HAVE NO FEELINGS BUT CAN HOLD CUP, CONTINENT, LARGE MEDS CUT IN HALF
[2020-02-19 20:54] VITALS: BP 132/81
--- NOTE | 2020-02-20 02:20 | NUR ---
PT IN BED ASLEEP, AROUSES EASILY TO VOICE, NO NEEDS NOTED, FLUIDS/ CALL LIGHT WITHIN REACH, PT GETS ANXIOUS/UPSET WHEN WANTS A PARTICULAR MEDICATION (NORCO) AND EXPLAINED SHE DOES NOT HAVE PRN NORCO IT IS SCHEDULED TID, N.O. FOR 650MG TYLENOL PRN.
[2020-02-20 06:18] LABS: ANION GAP 12.3 mmol/L (8-16); CALCIUM 8.3 mg/dL (8.5-10.1); CARBON DIOXIDE 26.2 mmol/L (21.0-32.0); CREATININE - SERUM 1.2 mg/dL (0.6-1.3); POTASSIUM - SERUM 3.5 mmol/L (3.5-5.1)
[2020-02-20 06:29] LABS: BASOPHILS 0.8 % (0-2); EOSINOPHILS 3.1 % (0-7); HEMATOCRIT 34.8 % (36.0-48.0); HEMOGLOBIN 11.2 g/dL (12-16); IMMATURE GRANULOCYTES 0.2 % (0-5); LYMPHOCYTES 36.5 % (15-50); MCHC 32.2 g/dL (31.0-37.0); MCV 96.4 fL (80.0-100.0); MEAN PLATELET VOLUME 9.9 fL (7.4-10.4); MONOCYTES 10.4 % (2-11); PLATELET COUNT 215 10x3/uL (130-400); RBC 3.61 10x6/uL (4.00-5.40); RDW 13.1 % (11.5-14.5); WBC 5.2 10x3/uL (4.8-10.8)
[2020-02-20 08:18] VITALS: BP 140/85
--- NOTE | 2020-02-20 12:36 | NUR ---
SITTING UP IN BED EATING LUNCH. DENIES CURRENT PAIN. DENIES NEEDS OR C/O. STILL USES WALKER TO GO TO BATHROOM WITH OUT ASST. CALL LIGHT IN REACH, BED IN LOWEST POSITION, SIDE RAILS UP X2.
--- NOTE | 2020-02-20 19:20 | NUR ---
PT SITTING UP IN BED. CL IN REACH. DENIES NEEDS AT THIS TIME. BED IN LOW SIDE RAILS X2. BED ALARM WAIVER IN CHART. A/O X4. LUNGS CLEAR. BOWEL ACTIVE X4. RESP EVEN AND UNLABORED. WILL CONTINUE TO MONITOR.
[2020-02-20 20:32] VITALS: BP 132/75
--- NOTE | 2020-02-21 01:00 | NUR ---
PT RESTING QUIETLY. CL IN REACH. NO DISTRESS NOTED. BED IN LOW SIDE RAILS X2. WCTM
--- NOTE | 2020-02-21 05:01 | NUR ---
I have reviewed this patient and I concur with the Shift Assessment completed by the Licensed Practical Nurse today this shift.
[2020-02-21 08:17] VITALS: BP 129/81
--- NOTE | 2020-02-21 08:30 | NUR ---
PATIENT AWAKE AND ALERT WATCHING TV, DENIES ANY NEEDS AT THIS TIME, V/S AND ASSESSMENT COMPLETED, C/L AND FLUIDS IN REACH.
--- NOTE | 2020-02-21 12:00 | NUR ---
PATIENT IN THERAPY, C/O PAIN AT A LEVEL 5 PRN TYLENOL GIVEN, DENIES ANY OTHER NEEDS AT THIS TIME.
--- NOTE | 2020-02-21 16:02 | NUR ---
AWAKE AND ALERT WATCHING TV IN BED, DENIES ANY NEEDS AT THIS TIME, C/L AND FLUIDS IN REACH.
--- NOTE | 2020-02-21 19:18 | NUR ---
PT WALKING AROUND IN ROOM WITH WALKER. BED ALARM WAIVER IN CHART. DENIES NEEDS AT THIS TIME. CL IN REACH. A/O X4. LUNGS CLEAR. BOWEL ACTIVE X4. RESP EVEN AND UNLABORED. WILL CONTINUE TO MONITOR.
[2020-02-21 20:00] VITALS: BP 117/60; BP 146/82
--- NOTE | 2020-02-21 23:47 | NUR ---
I have reviewed this patient and I concur with the Shift Assessment completed by the Licensed Practical Nurse today this shift.
--- NOTE | 2020-02-22 08:15 | NUR ---
PT RESTING IN BED WITH EYES OPEN CALL LIGHT IN REACH PT EATING BREAKFAST TOLERATING WELL
--- NOTE | 2020-02-22 18:18 | NUR ---
PT RESTING IN BED WITH EYES OPEN CALL LIGHT IN REACH NO PROBLEMS WILL MONITER
--- NOTE | 2020-02-22 19:22 | NUR ---
PT LYING IN BED RESTING QUIETLY WITH EYES CLOSED. BED IN LOW SIDE RAILS X2. BED ALARM WAIVER IN CHART. CL IN REACH. NO DISTRESS NOTED. RESP EVEN AND UNLABORED. WILL CONTINUE TO MONITOR.
[2020-02-22 20:15] VITALS: BP 142/80
[2020-02-23 06:27] LABS: ANION GAP 11.8 mmol/L (8-16); CALCIUM 8.5 mg/dL (8.5-10.1); CARBON DIOXIDE 26.1 mmol/L (21.0-32.0); CREATININE - SERUM 1.3 mg/dL (0.6-1.3); POTASSIUM - SERUM 3.9 mmol/L (3.5-5.1)
[2020-02-23 07:10] LABS: HEMATOCRIT 35.6 % (36.0-48.0); HEMOGLOBIN 11.5 g/dL (12-16); LYMPHOCYTES 31.6 % (15-50); MCH 30.9 pg (26.0-34.0); MCHC 32.3 g/dL (31.0-37.0); MCV 95.7 fL (80.0-100.0); MEAN PLATELET VOLUME 9.9 fL (7.4-10.4); NEUTROPHILS 56.9 % (40-80); PLATELET COUNT 205 10x3/uL (130-400); RBC 3.72 10x6/uL (4.00-5.40); RDW 12.4 % (11.5-14.5); WBC 5.4 10x3/uL (4.8-10.8)
--- NOTE | 2020-02-23 08:18 | NUR ---
IN THERAPY. BREAKFAST SERVED IN THERAPY ROOM. NO C/O PAIN. RESP EVEN AND UNLABORED.
[2020-02-23 08:25] VITALS: BP 128/77
--- NOTE | 2020-02-23 10:41 | NUR ---
PARTICIPATED IN THERAPY. NO DISTRESS NOTED. RESTING AT THIS TIME. CL IN REACH.
--- NOTE | 2020-02-23 11:54 | NUR ---
SHOWER PER OT TODAY.
--- NOTE | 2020-02-23 14:13 | NUR ---
Nutrition follow-up: Diet: Regular PO intake ~87.5% average of last 6 meals Labs reviewed Wt: 131# +BM PO intake good at this time RDN following.
--- NOTE | 2020-02-23 16:43 | NUR ---
NO CHANGE IN ASSESSMENT. ALERT AND AWAKE. NO C/O PAIN.
[2020-02-23 20:00] VITALS: BP 153/81
[2020-02-24 08:00] VITALS: BP 124/74
--- NOTE | 2020-02-24 08:00 | NUR ---
SHIFT ASSMT COMPLETED.BREAKFAST GIVEN.CL IN REACH.
--- NOTE | 2020-02-24 19:35 | NUR ---
PT SITTING ON SIDE OF BED ON PHONE, NO NEEDS NOTED, WAIVER SIGNED, FLUIDS/CALL LIGHT WITHIN REACH
[2020-02-24 21:18] VITALS: BP 124/70
--- NOTE | 2020-02-25 01:06 | NUR ---
PT ASLEEP NO NEEDS NOTED, AROUSES EASILY TO VOICE, ALARM WAIVER, FLUIDS/CALL LIGHT WITHIN REACH
[2020-02-25 07:37] LABS: BASOPHILS 0.5 % (0-2); EOSINOPHILS 2.6 % (0-7); HEMATOCRIT 37.3 % (36.0-48.0); HEMOGLOBIN 11.8 g/dL (12-16); IMMATURE GRANULOCYTES 0.2 % (0-5); LYMPHOCYTES 22.3 % (15-50); MCH 30.6 pg (26.0-34.0); MCHC 31.6 g/dL (31.0-37.0); MCV 96.9 fL (80.0-100.0); MEAN PLATELET VOLUME 9.9 fL (7.4-10.4); MONOCYTES 8.9 % (2-11); NEUTROPHILS 65.5 % (40-80); PLATELET COUNT 223 10x3/uL (130-400); RBC 3.85 10x6/uL (4.00-5.40); RDW 13.2 % (11.5-14.5); WBC 6.2 10x3/uL (4.8-10.8)
[2020-02-25 07:58] LABS: ANION GAP 10.3 mmol/L (8-16); CALCIUM 9.2 mg/dL (8.5-10.1); CARBON DIOXIDE 26.6 mmol/L (21.0-32.0); CREATININE - SERUM 1.3 mg/dL (0.6-1.3); POTASSIUM - SERUM 3.9 mmol/L (3.5-5.1)
--- NOTE | 2020-02-25 08:00 | NUR ---
SHIFT ASSMT COMPLETED.
--- NOTE | 2020-02-25 16:00 | NUR ---
CONTINUE POC.PLAN TO DC HOME TOMORROW.
--- NOTE | 2020-02-25 16:13 | NUR ---
CARE TEAM MEETING: PATIENT DOING WELL IN THERAPY. SHE WILL DISCHARGE HOME IN AM WITH FAMILY.WILL CONTINUE TO FOLLOW WITH PATIENT.
--- NOTE | 2020-02-25 19:45 | NUR ---
PATIENT RECEIVED SITTING UP IN BED. ASSESSMENT & VITAL SIGNS DONE. NO C/O PAIN OR DISTRESS AT THIS TIME. BED LOW. CALL LIGHT WITHIN REACH. WILL CONTINUE TO MONITOR.
[2020-02-25 19:59] VITALS: BP 121/65
--- NOTE | 2020-02-26 02:15 | NUR ---
I have reviewed this patient and I concur with the Shift Assessment completed by the Licensed Practical Nurse today this shift.
--- NOTE | 2020-02-26 04:13 | NUR ---
PATIENT EYES CLOSED. RESPIRATIONS 18 & EVEN. BED LOW. CALL LIGHT WITHIN REACH. WILL CONTINUE TO MONITOR.
--- NOTE | 2020-02-26 04:54 | NUR ---
PATIENT HAD VOID IN TOILET WHILE THIS NURSE WAS IN ROOM. RETURNED TO LOW BED. CALL LIGHT WITHIN REACH. WILL CONTINUE TO MONITOR.
[2020-02-26 07:36] VITALS: BP 139/79
--- NOTE | 2020-02-26 08:00 | NUR ---
SITTING UP IN WC IN ROOM FOR BREAKFAST. IS READY TO GO HOME AND READY TO PACK. DENIES NEEDS OR C/O. CALL LIGHT IN REACH
--- NOTE | 2020-02-26 08:59 | RHP ---
PATIENT: MAYA CARTAGENA MEDICAL RECORD: [id number] ACCOUNT: [id number] LOCATION:[facility]1114 : 35 ADMISSION DATE: 02/16/20 REHABILITATION HISTORY AND PHYSICAL EXAMINATION POST ADMISSION PHYSICIAN EXAMINATION ADMITTING DIAGNOSIS: Disuse myopathy. HISTORY OF PRESENT ILLNESS: The patient is an 84-year-old female patient, who has been living with her daughter for the last couple of weeks since she got discharged from her facility. She has been to her primary care office secondary to increased falls, deconditioning and debility, states that she would like to benefit from acute rehab and hopefully get back to a better quality of life. She is in agreeance and willing to participate in the required 3 hours a day, had to get back to her prior level of functioning. She was living in [facility] assisted living. She would like to move on to another assisted living from here. States that she was walking 3/4 of a mile daily to exercise. She is now unable to get up and get a couple of steps. The patient has decreased quality of life, decreased range of motion, decreased strength, gait disturbance, limited safety awareness, medical complexity, risk for falls. She needs cues for using equipment. She lives at home with her daughter and was independent with ADLs and mobility prior to this. She currently set up for mod assist for ADLs, mod assist for mobility. She and her family would like her to get back to her prior level of functioning or better. COMORBIDITIES: Include weakness, frequent falls, hyperlipidemia, chronic back pain, chronic tremor, Parkinson's, gluten sensitivity, anxiety, deconditioning, debility, impaired mobility and gait disturbance. PAST MEDICAL HISTORY: Significant for hyperlipidemia, depressive disorder, hypertension, atrial fib, osteoarthritis, low back pain, chronic tremor, OH, Parkinson's. PAST SURGICAL HISTORY: Includes bladder surgery. She has had a D&C. She has had a hernia repair. She has had arthroscopic surgery, breast biopsy. She has had a partial removal of her stomach, cholecystectomy, appendectomy and breast implants. ALLERGIES: REGLAN AND REQUIP. CURRENT MEDICATIONS: Include diltiazem 120 mg daily and amlodipine 10 mg daily. She is on Protonix 40 mg daily, potassium 10 mEq daily, aspirin 81 mg daily, labetalol 100 mg daily, vitamin D 1000 units daily, Carafate 1 g t.i.d., primidone 50 mg t.i.d., Ultram 50 mg t.i.d. p.r.n., lorazepam 0.5 mg t.i.d. HABITS: No tobacco use. FAMILY HISTORY: Noncontributory. SOCIAL HISTORY: The patient hopes to maybe going to an additional assisted living from here. REVIEW OF SYSTEMS: GENERAL: Does complain of weakness and fatigue. HEENT: Denies cold, cough, or congestion. HISTORY AND PHYSICAL [id number] MAYA CARTAGENA CARDIOVASCULAR: Denies any chest pain. PHYSICAL EXAMINATION: VITAL SIGNS: Stable, afebrile. GENERAL: Elderly female, in no acute distress, alert upon exam. HEENT: Normocephalic, atraumatic. Oral mucosa moist. NECK: Supple. No lymphadenopathy. LUNGS: Clear in upper chapin. HEART: Regular rate and rhythm. ABDOMEN: Soft, benign, and nondistended. Positive bowel sounds times 4. EXTREMITIES: No clubbing, cyanosis or edema. NEUROLOGIC: She does have a noted tremor and flat affect, consistent with Parkinson's. LABORATORY DATA: White count 5.1, H&H of 12 and 36, and platelet count is 229. Her sodium is 140, potassium 3.6, BUN and creatinine of 16 and 1.2, and blood sugar is 99. ASSESSMENT: This is an 84-year-old female patient admitted to rehab with a working diagnosis of disuse myopathy. The patient has potential to make improvement. We instituted the following multidisciplinary therapies include, but not limited to physical, occupational, respiratory, speech, nutritional services, prosthetics and orthotics. Given her complex medical condition and risks for more complications, rehabilitation services cannot be provided at a low level of care such as skilled facility. PLAN: 1. Admit to [facility] for an inpatient therapy to include the following disciplines: A. Physical therapy to improve gait, all transfer skills and bed mobility to a modified independent level. B. Occupational therapy to a modified independent level. C. Case management to assist with discharge planning and placement options. D. Nutrition to assist with nutritional needs. E. Rehabilitation nursing to assist in monitoring the patient's underlying medical conditions and to assist with any type of bowel or bladder management. 2. The patient's current medication and medical care will be continued. 3. The patient will be placed on standard fall precautions. 4. The patient's estimated length of stay is approximately 7-10 days. 5. We will discuss this patient during care team staff meeting this week. TRANSINT:[id number] Voice Confirmation ID: [id number] DOCUMENT ID: [id number] SHYANNE notes whether there has been none or any medical/functional change since admission: - No change since prescreen. SHYANNE attests patient continues to be appropriate for IRF: - Continues to be approriate. HISTORY AND PHYSICAL [id number] MAYA CARTAGENA,GENARO LIND MD at 0859 CC: [id number] DICTATION DATE: 02/17/20 1214 RECORDER HELPER GRAVITY PROSPECTING: 02/17/20 1246 ADM IN [place] [id number] [place] [address]
--- NOTE | 2020-02-26 10:16 | NUR ---
PATIENT DISCHARGING HOME WITH FAMILY TODAY. [facility] WILL PROVIDE THERAPY AT HOME. NO NEW DME NEEDED AT THIS TIME. DR VAZ 03/03/20 @ 10:00. KAROL SIGNED. IMM SERVED AND EXPLAINED. DISCHARGE INSTRUCTIONS FAXED TO PCP, HOME HEALTH AND REVIEWED WITH PATIENT PER PRIMARY NURSE.
--- NOTE | 2020-02-26 13:48 | NUR ---
DC HOME WITH ALL PERSONAL BELONGINGS. FRIEND CAME TO PICK HER UP. SHE WALKED OUT USING HER OWN WALKER. DENIES NEEDING MEDS CALLED IN TO PHARMACY. REVIEWED MEDS, DC PLAN AND FOLLOW UP APPOINTMENTS.
--- NOTE | 2020-02-26 14:07 | NUR ---
DISCHARGE CLINICALS FAXED TO [facility] , AUTH. # [id number] WITH CONFORMATION RECIEVED
== END 2020-02-26 13:53 | disposition home health service (06) | DRG 93 ==
LOC: D.REHAB 13:42
PROVIDERS: ADMIT Emergency Medicine; ATTEND Emergency Medicine
DX: G72.89 Other specified myopathies (principal); R53.1 Weakness; Z91.81 History of falling; G20 Parkinson's disease; R53.81 Other malaise; M54.9 Dorsalgia, unspecified; R26.89 Other abnormalities of gait and mobility; E78.5 Hyperlipidemia, unspecified; I10 Essential (primary) hypertension; I48.91 Unspecified atrial fibrillation; F32.9 Major depressive disorder, single episode, unspecified